=== PATIENT | male | born 1960 | race African-American/Black ===

== ENCOUNTER 2017-02-26 03:45 | Observation (INO) | payer OTHER ==
[~2017-02-26 03:45] MED LIST: ASPI81CH CHEW; LISI2.5T3 PO; NIAC100T2 PO; PANT20 PO; TRAM50TA PO
[2017-02-26 04:13] VITALS: BP 102/58; PULSE 82; RESP 18; TEMP 97.8; O2SAT 95
[2017-02-26 05:40] VITALS: PULSE 84
[2017-02-26 07:28] VITALS: PULSE 74
[2017-02-26 08:00] VITALS: BP 120/68; PULSE 80; PULSE 93; RESP 20; TEMP 97.3; O2SAT 94
[2017-02-26] MEDS ORDERED: RESP: ALBUTEROL 2.5 MG/IPRATROPIUM 0.5 MG NEB (SCH) INH STA (08:59)
[2017-02-26] MEDS ORDERED: RESP: ALBUTEROL 2.5 MG/IPRATROPIUM 0.5 MG NEB (PRN) INH (09:00)
[2017-02-26] MEDS ORDERED: LISI20TA3 PO (09:10)
[2017-02-26] MEDS ORDERED: AZITHROMYCIN 250 MG TAB PO ONE (09:15)
[2017-02-26] MEDS ORDERED: methylPREDNISolone SOD SUCC 125 MG/2 ML VIAL IV PUSH SCH (09:15)
--- NOTE | 2017-02-26 09:49 | HHI.HP ---
HPI Primary Care Physician Unknown Chief Complaint Cough and shortness of breath History of Present Illness This is a 56-year-old male that presents to ED in [place] with a complaint of a yellowish color productive cough for one month. He has been short of breath. He has had subjective fever and chills. He states that the symptoms worsened yesterday. He went home took a hot shower still could not warmup. Took an Aleve and up blankets. His some shaking and told to go to the hospital. Denies having chest pain but then he stated that he did have a little bit of a tightness in his chest with deep inspiration. He states the symptoms resolved after getting the medications in the ED. He was given antibiotics, DuoNeb's, and IV Solu-Medrol. States he is feeling much better. Denies history of CAD. States he has hypertension and hyperlipidemia. Occasional cigar smoker but denies other tobacco abuse. Review of Systems General: Patient complains of fevers chills. Denies recent travel. There are sick contacts at work. HEENT: Patient denies headache, sore throat, difficulty swallowing. Cardiovascular: Denies chest pain but states had a tightness with deep breathing as mentioned above. Denies sensation of heart beating rapidly or irregularly. No syncope. Respiratory: Denies shortness breath coughing wheezing. Denies hemoptysis. GI: Patient denies nausea, vomiting, diarrhea, abdominal pain, bloody stools. Musculoskeletal: Patient denies joint pain or edema. Denies calf pain or edema. Neurovascular: Patient denies numbness, tingling, weakness in extremities. Denies headache. Endocrine: Denies polyuria and polydipsia. Hematologic: Denies easy bruising. Skin: Denies rash or itching. Past Family Social History Allergies: Coded Allergies: Penicillins (Verified Allergy, Severe, Anaphylaxis, 02/25/17) shellfish derived (Verified Allergy, Intermediate, Anaphylaxis, 02/25/17) Past Medical History Hypertension and hyperlipidemia. Denies diabetes and CAD. Past Surgical History Noncontributory Reported Medications Reported Meds & Active Scripts Active Reported Lisinopril-Hctz 20-25 Mg Tab 0.5 Tab PO DAILY Niacin 100 Mg Tab Unknown Dose PO BID Tramadol (Tramadol HCl) 50 Mg Tab Unknown Dose PO Q4H PRN Aspirin 81 Mg Chew 81 Mg CHEW DAILY Protonix (Pantoprazole Sodium) 20 Mg Tab Unknown Dose PO DAILY Lisinopril 2.5 Mg Tab Unknown Dose PO DAILY Active Ordered Medications Current Medications Medications (Trade) Dose Ordered Sig/Xenia Route Start Time Stop Time Status Last Admin (SoluMEDROL INJ) 60 mg STAT IV PUSH 02/26/17 09:15 Family History States that his brother at 62 of a myocardial infarction. Social History Patient smokes an occasional cigar but was never a cigarette smoker. Denies alcohol or illicit drugs. Physical Exam Vital Signs Vital Signs Date Time Temp Pulse Resp B/P Pulse Ox O2 Delivery O2 Flow Rate FiO2 02/26/17 08:00 97.3 93 20 120/68 94 02/26/17 07:28 74 02/26/17 05:40 84 02/26/17 04:13 97.8 82 18 102/58 95 Physical Exam GENERAL: This is a well-nourished, well-developed patient, in no apparent distress. Patient speaks in clear complete sentences. Patient is pleasant. HEENT: Head is atraumatic and normocephalic. Neck is supple without lymphadenopathy and trachea is midline. No JVD or carotid bruits. CARDIOVASCULAR: Regular rate and rhythm without murmurs, gallops, or rubs. RESPIRATORY: At has diffuse expiratory wheezing with some scattered rhonchi. Decreased breath sounds at bases bilaterally. Chest wall is tender. No use of accessory muscles. GASTROINTESTINAL: Abdomen is nontender, nondistended. Abdomen soft. No obvious pulsatile mass or bruit. No CVA tenderness. Strong femoral pulses bilaterally. Normal bowel sounds in all quadrants. MUSCULOSKELETAL: Patient is moving upper and lower extremities freely. No calf tenderness or edema, no Homans sign. Strong pulses in upper and lower extremities. NEUROLOGICAL: Patient is alert and oriented. Cranial nerves 2-12 are grossly intact. No focal deficits and speech is clear. SKIN: No rash and turgor is normal. Imaging Chest x-ray reveals nothing acute. Course EKGs have been sinus rhythm without significant ST segment depressions or elevations. Assessment and Plan Assessment and Plan * Bronchitis: Patient was transferred to the chest pain center to evaluate chest discomfort however patient states his discomfort is more with respiratory issues and has improved after getting treatment for those respiratory issues. He had serial cardiac enzymes and EKGs. He'll be seen by Dr. Sy of cardiology and the chest pain center. Likely no stress testing. We will give more DuoNeb's while in the chest pain center, another dose of IV steroids, and he'll be given prescriptions for antibiotics, prednisone, and an albuterol inhaler. He'll need to follow-up with his primary care physician within 3-5 days. He should stop smoking cigars as well. * Hypertension: Continue current medication. * Hyperlipidemia: Patient states that statins called myalgias and that was discontinued. He needs discuss this further with his PCP. Patient is stable at this time. He is agreeable to this plan. Jose De Jesus Youssef Feb 26, 2017 09:49
[2017-02-26 12:00] VITALS: BP 143/72; PULSE 85; PULSE 92; RESP 20; TEMP 97.1; O2SAT 95
[2017-02-26] MEDS ORDERED: PRED20 PO (12:10)
[2017-02-26] MEDS ORDERED: VENTAER INH (12:10)
[2017-02-26] MEDS ORDERED: ZITH250T PO (12:10)
--- NOTE | 2017-02-26 12:11 | HHI.DCPOC ---
Discharge Care Plan Diagnosis: (1) Acute bronchitis Goals to Promote Your Health * To prevent worsening of your condition and complications * To maintain your health at the optimal level Directions to Meet Your Goals Take your medications as prescribed Follow your dietary instruction Follow activity as directed Keep your appointments as scheduled Take your immunizations and boosters as scheduled If your symptoms worsen call your PCP, if no PCP go to Urgent Care Center or Emergency Room Smoking is Dangerous to Your Health. Avoid second hand smoke Call the 24-hour hour crisis hotline for domestic abuse at Jose De Jesus Youssef Feb 26, 2017 12:11
[2017-02-26] MEDS ORDERED: NON-FORMULARY DRUG (Lisinopril-Hctz 0.5 TAB) PO SCH (12:15)
[2017-02-26] MEDS ORDERED: PILL SPLITTER OTHER PRN (13:15)
[2017-02-26] MEDS ORDERED: HYDROCHLOROTHIAZIDE 25 MG TAB PO SCH (13:30)
[2017-02-26] MEDS ORDERED: LISINOPRIL 20 MG TAB PO SCH (13:30)
== END 2017-02-26 13:59 | disposition home or self-care (01) ==
LOC: NEDDLT 03:45 → NEPFCDU 03:55
PROVIDERS: ADMIT Internal Medicine Cardiovascular Disease; ATTEND Internal Medicine Cardiovascular Disease
DX: J20.9 Acute bronchitis, unspecified (principal); E78.5 Hyperlipidemia, unspecified; I10 Essential (primary) hypertension; R07.9 Chest pain, unspecified; F17.290 Nicotine dependence, other tobacco product, uncomplicated; Z79.899 Other long term (current) drug therapy; Z79.82 Long term (current) use of aspirin
CPT/HCPCS: 36600; 71010; 80048; 82550; 82552; 82805; 83605; 83735; 83880; 84484; 85025; 85379; 87040; 93005; 94664; 96365; 96366; 96375; 99285; J0696; J2930; 96374; 99281; G0378